=== PATIENT | male | born 1960 | race Caucasian/White ===

== ENCOUNTER 2019-03-28 14:32 | Outpatient (CLI) | payer OTHER, SELFPAY ==
--- NOTE | 2019-04-01 15:44 | SLEEP_ITS ---
Nocturnal Polysomnogram. DATE OF STUDY: 03/28/2019 ORDERING PHYSICIAN: Laure Evans M.D. 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 HISTORY: This patient is a 58-year-old male, who is 70 inches tall, weighing 185 pounds with a body mass index of 26.5. He has a history of obstructive sleep apnea syndrome, has been using a mandibular advancement device since 2009. He received a replacement device in 2015. He sleeps well at night with the exception of some leg pain. He denies snoring. Occasionally, he awakens at night with heartburn. He does not awaken from sleep feeling short of breath. He rarely has trouble sleeping with a cold. He does not gasp for breath at night, is not told by others that he has apnea at night, does not sweat excessively at night or notices heart pounding or beating irregularly at night. He rarely falls asleep during the day, never involuntarily. He does not fall asleep with physical effort. He does not have loss of muscle tone with strong emotion. He does not feel paralyzed on waking or falling asleep. He does not have vivid dreamlike scenes upon awakening or falling asleep and is never afraid to go to sleep. He does not have nightmares. He rarely remembers his dreams. He occasionally has racing thoughts. He rarely feels sad, depressed, or anxious. He rarely has muscular tension. He occasionally notices parts of his body jerking. He rarely kicks at night. He does not have crawly achy feelings in his legs. He occasionally has leg pain at night. He rarely has morning jaw pain. He does not grind his teeth at night. He occasionally is bothered by back and neck pain during the day and at night has back, neck and leg pain. He occasionally wakes up feeling stiff in the morning. He rarely wakes up with sore achy muscles. He occasionally wakes up with pain in the neck and spine. He goes to bed at 10:45 p.m. when he is at home. This varies when he is working and traveling. He wakes up at 06:30 a.m. He typically awakens 2-3 times at night once to urinate and twice for body pain. He is usually awake, 2-5 minutes. During this time, he will use the bathroom, reposition his body and try to work out a cramp in his leg. On weekends, the schedule does change. He does not take naps. A short nap is not refreshing. Most of the time, he feels good when he awakens. He feels better in the afternoon than in the morning. MEDICAL COMORBIDITIES: History of rectal cancer, obstructive sleep apnea, polycystic liver disease, septoplasty and somnoplasty as well as tonsillectomy for sleep apnea and nasal problems. MEDICATIONS: Aspirin 81 mg a day for family history of heart disease. Imodium every other day to decrease colonic motility following rectal surgery. Valacyclovir 500 mg twice a day for 3 days whenever he has a shingles outbreak. HABITS: Never smoked tobacco. Caffeine, 1 soda or tea every other day. No alcohol. No recreational drugs. DESCRIPTION OF THE STUDY: On the [place] Sleepiness Scale, his score is 5. This was conducted as a nocturnal polysomnogram with a mandibular advancement device titration using a [employer] multiple channel system including EOG, EEG, submental EMG, EKG, nasal and oral airflow using thermistors, nasal pressure sensors, chest and abdominal belts, body position data and pulse oximetry. The study was scored using CMS guidelines. The duration of the study was 444.8 minutes. Sleep time was 277.4 minutes. The sleep efficiency was low at 62.4%. Sleep latency was 11.9 minutes. REM latency was 96.5 minutes normal. He had 30 awakenings and spent 35.9% of the study awake after sleep onset, 155.5 minutes. Sleep architecture showed 6.5% stage 1 sleep, 35.1% stage 2 sleep, 15% stage 3 sleep, and 7.5% stage REM. He senior
== END 2019-03-28 14:33 | disposition home or self-care (01) ==
LOC: ANHCSM 14:33
PROVIDERS: PCP Internal Medicine; Visit Provider Internal Medicine Critical Care Medicine
DX: G47.33 Obstructive sleep apnea (adult) (pediatric) (principal); G47.61 Periodic limb movement disorder
CPT/HCPCS: 95810

== ENCOUNTER 2019-10-07 09:42 | Outpatient (CLI) | payer OTHER, SELFPAY ==
--- NOTE | ~2019-10-07 | CT_ITS ---
EXAMINATION: CT soft tissue neck w con DATE: 10/07/2019 10:19 INDICATION: Left neck lymphadenopathy. TECHNIQUE: Computed tomography (CT) of the neck was performed with 75 mL Omnipaque-350 intravenous co ntrast. Automated exposure control and iterative reconstruction technique were employed. The dose-essence gth product was 607.82 mGy-cm. COMPARISON: None FINDINGS: There are no pathologically enlarged lymph nodes. There is plaque in proximal right interna l carotid artery with 0% stenosis relative to normal distal artery lumen diameter. There is a 2.6 x 1 .7 cm subcutaneous lipoma in right posterior thorax. There is mild mucosal thickening in the maxillar y sinuses. There is mild cervical spondylosis. IMPRESSION: 1. No cervical lymphadenopathy. Reviewed, dictated and finalized at location B.
[2019-10-07 10:07] LABS: Estimated Glomerular Filt Rate > 60
== END 2019-10-07 09:43 | disposition home or self-care (01) ==
LOC: ANHIMG 09:45
PROVIDERS: PCP Internal Medicine; Visit Provider Nurse Practitioner
DX: R59.0 Localized enlarged lymph nodes (principal)
CPT/HCPCS: 70491; Q9967

== ENCOUNTER 2020-02-28 11:50 | Emergency (ER) | payer OTHER, SELFPAY ==
[2020-02-28 11:59] VITALS: BP 130/80; PULSE 91; RESP 18; TEMP 36.7; O2SAT 97
--- NOTE | 2020-02-28 12:06 | ED.EYEPROB ---
HPI - Eye Problem General Chief complaint: Eye Problems Stated complaint: L/eye red Time Seen by Provider: 02/28/20 11:55 Source: patient and RN notes reviewed History of Present Illness HPI Narrative: Patient is a 59-year-old male who presents the urgent care with complaints of left eye redness, itchiness and matting. Patient states that he noticed that yesterday morning when he woke up, it being matted shut. Patient states it is seem to worsened over the 24-hours. Patient has not used anything [id number] or placed any eyedrops into the eye. Patient denies of any vision changes, trauma to the eye, known injury to the eye. Patient denies a possibility of anything getting into the eye. Patient does not wear contacts. No other acute complaints. No acute distress noted. Patient aware of the plan of care. Some parts of this dictation were generated by voice recognition software and may contain typographical and/or grammatical inaccuracies. Related Data Home Medications Medication Instructions Recorded Confirmed multivitamin 1 tablet PO DAILY 01/31/19 03/24/19 Allergies Allergy/AdvReac Type Severity Reaction Status Date / Time No Known Allergies Allergy Verified 02/28/20 11:52 Review of Systems Review of Systems: Narrative: CONSTITUTIONAL: Denies fever, chills, or sweats. EYES: Denies visual changes, redness, or discharge. ENT: Reports of left eye redness, itchiness, mild swelling and matting CARDIOVASCULAR: Denies chest pain, palpitations, or edema. RESPIRATORY: Denies cough or dyspnea. GASTROINTESTINAL: Denies abdominal pain, nausea, vomiting, or diarrhea. GENITOURINARY: Denies dysuria or hematuria. SKIN: Denies rash or itching. MUSCULOSKELETAL: Denies back pain, joint pain, or myalgia. NEUROLOGIC: Denies headache, numbness, or weakness. All other systems reviewed are negative, except as documented in HPI. [facility] Past Medical History Medical History (Updated 02/28/20 @ 12:11 by MARTIN Song) Erectile dysfunction Hematuria, gross History of rectal cancer TYLOR (obstructive sleep apnea) Polycystic liver disease Rectal cancer Rectal tumor Surgical History Surgical History (Updated 12/23/18 @ 14:33 by Kymberly Kennedy CMA) H/O ileostomy H/O nasal septoplasty Hx of tonsillectomy Family History Family History (Updated 12/23/18 @ 14:38 by Kymberly Kennedy [facility]) Mother Lung cancer Social History Social History (Updated 12/23/18 @ 15:07 by Kymberly Kennedy [facility]) Smoking status: Never smoker Alcohol intake: never Gender identity (if verbalized by the patient): Male Comments At the time of my signature, I reviewed and agree with the nursing past medical, surgical, social, and family history. There is no relevant family history pertinent to the patient complaint. Exam Narrative: Exam Narrative: GENERAL: This is a well-nourished, well-developed patient, in no apparent distress. HEAD: normocephalic, atraumatic. EYES: PERRL. Right sclera clear/white. Vision is grossly intact. Moderately injected left-sided conjunctivea with moderate erythema, clear tearing, and very mild surrounding edema of the left eye. EARS: External ears normal, auditory canals clear and without drainage, TMs normal without perforation. Hearing grossly intact. NOSE: External nose normal with no obvious nasal discharge, nares without redness, no rhinorrhea. THROAT: Mucous membranes moist, posterior pharynx clear. NECK: Neck supple, slightly tender left-sided possible thyroid nodule SKIN: warm, intact with no suspicious lesions or rash, good texture and turgor. NEURO: awake, alert, and oriented to person, place and time. Course Vital Signs Vital signs: Vital Signs Temperature 98.0 F 02/28/20 11:59 Pulse Rate 91 02/28/20 11:59 Respiratory Rate 18 02/28/20 11:59 Blood Pressure 130/80 02/28/20 11:59 Pulse Oximetry 97 02/28/20 11:59 Temperature 98.0 F 02/28/20 11:59 Pulse Rate 91
== END 2020-02-28 12:18 | disposition home or self-care (01) ==
PROVIDERS: Emergency Provider Nurse Practitioner Family; PCP Internal Medicine
DX: H10.9 Unspecified conjunctivitis (principal); G47.33 Obstructive sleep apnea (adult) (pediatric); Q44.6 Cystic disease of liver; Z85.048 Personal history of other malignant neoplasm of rectum, rectosigmoid junction, and anus
CPT/HCPCS: 99213; G0463

== ENCOUNTER → 2020-03-20 01:16 | Outpatient (CLI) | payer OTHER, SELFPAY ==
[2020-03-20 20:39] LABS: SARS-CoV-2 RNA PCR Negative
== END ==
PROVIDERS: PCP Internal Medicine; Visit Provider Internal Medicine Critical Care Medicine
DX: Z01.812 Encounter for preprocedural laboratory examination (principal); Z20.822 Contact with and (suspected) exposure to COVID-19
CPT/HCPCS: C9803; U0003; U0005

== ENCOUNTER → 2020-03-26 00:25 | Outpatient (CLI) | payer OTHER, SELFPAY ==
[2020-03-26 18:19] LABS: SARS-CoV-2 RNA PCR Negative
== END ==
PROVIDERS: PCP Internal Medicine; Visit Provider Internal Medicine Critical Care Medicine
DX: Z01.812 Encounter for preprocedural laboratory examination (principal); Z20.822 Contact with and (suspected) exposure to COVID-19
CPT/HCPCS: C9803; U0003; U0005

== ENCOUNTER 2020-04-02 08:31 | Outpatient (CLI) | payer OTHER, SELFPAY ==
--- NOTE | 2020-04-05 11:22 | WPDSLEEPSTUD ---
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 He has a prior history of a septoplasty, somnoplasty and a tonsillectomy. He does not awaken from sleep feeling short of breath. He occasionally awakens at night with heartburn, belching or coughing. He does not think that he snores. He is single and he sleeps alone. He does not have other people tell him that he snores at night. He occasionally has trouble sleeping with a cold. He does not wake up gasping for breath at night. He does not have breathing problems at night observed by others. He rarely sweats excessively at night. He rarely notices his heart pounding or beating irregularly at night. He occasionally falls asleep during the day, never involuntarily. He rarely falls asleep while driving. He does not fall asleep while exerting physical effort. He does not have loss of muscle tone was strong emotion. He does not have daytime difficulties due to excessive sleepiness. He does not feel paralyzed on waking or falling asleep. He does not have vivid dreamlike scenes upon awakening or falling asleep. He does not feel afraid to go to sleep. He does not have nightmares. He rarely remembers his dreams. He occasionally has racing thoughts. He occasionally has feelings of sadness depression and anxiety. He occasionally has muscular tension. He occasionally notices parts of his body jerking. He does not kick at night. He occasionally has crawling and aching feelings in his legs. He frequently has leg pain at night. He rarely has morning jaw pain. He does not grind his teeth during sleep. He occasionally is bothered by pain during the day. He frequently is awakened by pain at night, 2-3 times on most nights. He occasionally wakes up feeling stiff in the morning with sore achy muscles. He frequently wakes up with pain in the neck and spine. Most of this pain is associated with spinal nerve irritation. 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 It takes him between 15 minutes and 45 minutes to fall asleep. He typically wakes up 2-3 times at night due to nerve pain. He stays awake for 5-10 minutes. While awake he will change position to relieve the pressure on his spine, and less often he urinates while awake, one time at most. His weekend schedule shows that he goes to bed between 11:00 p.m. and 1:00 a.m.. He wakes in the morning between a.m. and 9:00 a.m.. He sleeps approximately 7-8 hours per night. He does not take naps. A short nap is not refreshing. Most of the time he feels refreshed when he wakes up. Habits: Never smoked tobacco. Caffeine at half of a beverage a day. No alcohol or recreational drugs. [facility] Past Medical History Medical History Erectile dysfunction Hematuria, gross History of rectal cancer TYLOR (obstructive sleep apnea) Polycystic liver disease Rectal cancer Rectal tumor Surgical History Surgical History H/O ileostomy H/O nasal septoplasty Hx of tonsillectomy Family History Family History Mother Lung cancer Social History Social History Smoking status: Never smoker Alcohol intake: never Gender identity
[2020-04-05 16:42] VITALS: BMI 26.5
== END 2020-04-02 08:32 | disposition home or self-care (01) ==
LOC: ANHCSM 08:32
PROVIDERS: PCP Internal Medicine; Visit Provider Nurse Practitioner Family
DX: G47.33 Obstructive sleep apnea (adult) (pediatric) (principal)
CPT/HCPCS: 95810

== ENCOUNTER 2021-05-11 08:55 | Outpatient (CLI) | payer OTHER, SELFPAY ==
--- NOTE | ~2021-05-11 | XR_ITS ---
XR chest 2V DATE: 05/11/2021 09:08 INDICATION: Cough, fever, left-sided crackles for one week TECHNIQUE: PA and lateral chest COMPARISON: None FINDINGS: No pulmonary infiltrate or consolidation, pleural effusion or pulmonary vascular congestion or pneumothorax. Normal heart size. No hilar or mediastinal enlargement. Mild dextro scoliosis of the thoracic spine. IMPRESSION: No active cardiopulmonary disease Reviewed, dictated and finalized at location A.
== END 2021-05-11 08:56 | disposition home or self-care (01) ==
LOC: ANHIMG 09:00
PROVIDERS: PCP Internal Medicine; Visit Provider Clinical Nurse Specialist
DX: R09.89 Other specified symptoms and signs involving the circulatory and respiratory systems (principal); M41.9 Scoliosis, unspecified
CPT/HCPCS: 71046

== ENCOUNTER → 2022-05-30 11:19 | Outpatient (CLI) | payer OTHER, SELFPAY ==
--- NOTE | ~2022-05-30 | XR_ITS ---
Cervical Spine: AP, lateral, open-mouth views Clinical History: Pain Findings: The normal lordotic curve is maintained. The vertebral bodies and posterior elements appea r intact. Small anterior marginal osteophytes are present from C5 to C7. Mild facet arthropathy is pr esent at C4-C5 and C5-C6. The intervertebral disc spaces are well maintained. Pre-vertebral soft tiss ues are unremarkable. Impression: Mild degenerative change, as above. Reviewed, dictated and finalized at location M. Impression: Mild degenerative change, as above.
== END ==
PROVIDERS: PCP Internal Medicine; Visit Provider Clinical Nurse Specialist
DX: M54.12 Radiculopathy, cervical region (principal); M25.569 Pain in unspecified knee
CPT/HCPCS: 72040; 73562

== ENCOUNTER 2023-11-02 14:45 | Outpatient (RCR) | payer MEDICARE, OTHER, SELFPAY ==
--- NOTE | 2023-08-09 10:32 | OTOPEVAL1 ---
Assessment and note entered by Kevin Carmichael, BECKI/Adonay, CHT OT Evaluation Information 08/09/23 Assessment Status Evaluation Diagnosis Trigger finger Onset ~4-5 weeks Subjective Information Patient reports experiencing right middle finger catching about 4-5 weeks ago. Notes it's the worst in the morning and it progressively feels better after he gets moving throughout the day. 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 He is right handed. Reported Pain Level Pain Score 2: Self Report Assessment OT Clinical Summary Patient referred to OT with dx of trigger finger of the right middle finger. He presents with a palpable, sore nodule at the A1 norma. Some catching and pain/discomfort with ROM. Today a figure-8 PIP immobilization splint was fabricated for the patient to wear to rest the flexor tendon. Also issued active and passive ROM HEP. Instructed in the use of ice for reduced inflammation. He verbalizes excellent understanding of all materials. Continued follow up indicated for use of modalities, manual therapy, HEP progression, and therapeutic exercise to facilitate reduced triggering of the right middle finger. Plan of Care Interventions Therapeutic Exercise,Manual Therapy,Therapeutic Activities,Hot Pack/Cold Pack,Ultrasound,Paraffin OT Services Indicated Yes Treatment Frequency and 1x/week for 4 visits Duration These treatments will address the objective and functional deficits as defined above. The patient will be advanced safely and appropriately in order for the patient to progress towards his/her prior level of function. Additional exercises will be introduced and as well as a comprehensive home exercise program upon discharge, if needed, ?to ensure carryover of functional gains achieved in the clinic. This treatment plan has been reviewed and agreement upon by the patient.
--- NOTE | 2023-08-09 10:33 | OPREHPOC ---
Outpatient Therapy Plan of Care This is a Multidisciplinary Plan of Care that may contain components documented by all disciplines (PT, OT, and ST.) OT Problem 1 OT Problem #1 Knowledge Deficit OT Goal 1 Goal 1. Patient to be independent with instructed materials. Target Visit 4 OT Problem 2 OT Problem #2 Pain OT Goal 1 Goal 1. Patient to report reduced pain in the right middle finger to 1/10 at worst . Target Visit 4 OT Problem 3 OT Problem #3 Impaired Flexibility OT Goal 1 Goal 1. Patient to be able to complete tendon glides without sensations of catching in the right middle finger. Target Visit 4 OT Problem 4 OT Problem #4 Impaired Strength OT Goal 1 Goal 1. 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 Target Visit 4
--- NOTE | 2023-08-30 15:14 | OTOPPROG ---
Assessment and note entered by Kevin Carmichael, BECKI/Adonay, CHT OT Progress Update 08/30/23 Diagnosis Trigger finger Onset ~4-5 weeks Subjective Information Patient reports good compliance with HEP - ROM, self massage, splinting, and using heat/ice PRN. He reports therapy has helped keep his symptoms down, he reports without therapy his hand would be much worse off. Overall his pain at rest has reduced to 0/10, which has improved from 2/10. He continues to have intermittent catching with active flexion. Catching is dependent on his activity levels that day. Assessment OT Clinical Summary Patient referred to OT with dx of trigger finger of the right middle finger. Overall his pain is reducing, the nodule is reducing in size, and he is tolerating more resistive exercise without symptoms. He continues to experience catching intermittently, however. Continued follow up indicated for use of modalities, manual therapy, HEP progression, and therapeutic exercise to facilitate reduced triggering of the right middle finger. Plan of Care Interventions Therapeutic Exercise,Manual Therapy,Therapeutic Activities,Hot Pack/Cold Pack,Ultrasound,Paraffin OT Services Indicated Yes Treatment Frequency and 1x/week for 4 visits Duration These treatments will address the objective and functional deficits as defined above. The patient will be advanced safely and appropriately in order for the patient to progress towards his/her prior level of function. Additional exercises will be introduced and as well as a comprehensive home exercise program upon discharge, if needed, ?to ensure carryover of functional gains achieved in the clinic. This treatment plan has been reviewed and agreement upon by the patient.
--- NOTE | 2023-08-30 15:14 | OPREHPOC ---
Outpatient Therapy Plan of Care This is a Multidisciplinary Plan of Care that may contain components documented by all disciplines (PT, OT, and ST.) OT Problem 1 OT Problem #1 Knowledge Deficit OT Goal 1 Goal 1. Patient to be independent with instructed materials. ---OT POC UPDATE 08/30/23--- 1. Met, progress as needed Target Visit 8 OT Problem 2 OT Problem #2 Pain OT Goal 1 Goal 1. Patient to report reduced pain in the right middle finger to 1/10 at worst . ---OT POC UPDATE 08/30/23--- 1. Progressing, but not met, continue Target Visit 8 OT Problem 3 OT Problem #3 Impaired Flexibility OT Goal 1 Goal 1. Patient to be able to complete tendon glides without sensations of catching in the right middle finger. ---OT POC UPDATE 08/30/23--- 1. Progressing, but not met, continue Target Visit 8 OT Problem 4 OT Problem #4 Impaired Strength OT Goal 1 Goal 1. 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 ---OT POC UPDATE 08/30/23--- 1. Began with yang today, continue to progress putty as able Target Visit 8
--- NOTE | 2023-09-27 16:07 | OTOPPROG ---
Assessment and note entered by Kevin Carmichael, BECKI/Adonay, CHT OT Progress Update 09/27/23 Assessment Status Progress Diagnosis Trigger finger Subjective Information Patient reports overall progress in the hand, noticing reduced instances triggering/catching of the finger. He reports compliance with HEP - ROM, self massage, splinting, and using heat/ice PRN. He reports the worst time of day is first thing in the morning, he wakes up with soreness and triggering. He continues to have intermittent catching with active flexion. Catching is dependent on his activity levels that day. Assessment OT Clinical Summary Patient referred to OT with dx of trigger finger of the right middle finger. Overall his pain is reducing, the nodule is reducing in size, and he is tolerating more resistive exercise without symptoms. He continues to experience catching intermittently, however. Continued follow up indicated for use of modalities, manual therapy, HEP progression, and therapeutic exercise to facilitate reduced triggering of the right middle finger. Plan of Care Interventions Therapeutic Exercise,Manual Therapy,Therapeutic Activities,Hot Pack/Cold Pack,Ultrasound,Paraffin OT Services Indicated Yes Treatment Frequency and 2x/week for 6 visits Duration These treatments will address the objective and functional deficits as defined above. The patient will be advanced safely and appropriately in order for the patient to progress towards his/her prior level of function. Additional exercises will be introduced and as well as a comprehensive home exercise program upon discharge, if needed, ?to ensure carryover of functional gains achieved in the clinic. This treatment plan has been reviewed and agreement upon by the patient.
--- NOTE | 2023-09-27 16:07 | OPREHPOC ---
Outpatient Therapy Plan of Care This is a Multidisciplinary Plan of Care that may contain components documented by all disciplines (PT, OT, and ST.) OT Problem 1 OT Problem #1 Knowledge Deficit OT Goal 1 Goal 1. Patient to be independent with instructed materials. ---OT POC UPDATE 08/30/23--- 1. Met, progress as needed ---OT POC UPDATE 09/27/23--- 1. Met Target Visit 13 OT Problem 2 OT Problem #2 Pain OT Goal 1 Goal 1. Patient to report reduced pain in the right middle finger to 1/10 at worst . ---OT POC UPDATE 08/30/23--- 1. Progressing, but not met, continue ---OT POC UPDATE 09/27/23--- 1. Progressing, but not met, continue Target Visit 13 OT Problem 3 OT Problem #3 Impaired Flexibility OT Goal 1 Goal 1. Patient to be able to complete tendon glides without sensations of catching in the right middle finger. ---OT POC UPDATE 08/30/23--- 1. Progressing, but not met, continue ---OT POC UPDATE 09/27/23--- 1. Progressing, but not met, continue Target Visit 13 OT Problem 4 OT Problem #4 Impaired Strength OT Goal 1 Goal 1. 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 ---OT POC UPDATE 08/30/23--- 1. Began with yang today, continue to progress putty as able ---OT POC UPDATE 09/27/23--- 1. Progressing, continue Target Visit 13
--- NOTE | 2023-10-23 13:01 | OTOPPROG ---
Assessment and note entered by BECKI Payne/Adonay, CHT OT Progress Update 10/23/23 Assessment Status Progress Diagnosis Trigger finger Subjective Information Patient reports overall progress in the hand, noticing reduced instances triggering/catching of the finger. He reports when the finger does trigger it's feeling more mild or not as intense . He reports compliance with HEP - ROM, self massage, splinting, and using heat/ice PRN. He also started using Voltaren daily. He reports the worst time of day is first thing in the morning, he wakes up with soreness and stiffness. He continues to have intermittent catching with active flexion, however he does note he can move through more ROM before the catching happens. Assessment OT Clinical Summary Patient referred to OT with dx of trigger finger of the right middle finger. Overall his pain is reducing, the nodule is reducing in size, and he is tolerating more resistive exercise without symptoms. He continues to experience catching intermittently, however. Continued follow up indicated for use of modalities, manual therapy, HEP progression, and therapeutic exercise to facilitate reduced triggering of the right middle finger. Plan of Care Interventions Therapeutic Exercise,Manual Therapy,Therapeutic Activities,Hot Pack/Cold Pack,Ultrasound,Paraffin OT Services Indicated Yes Treatment Frequency and 1x/week for 4 visits Duration These treatments will address the objective and functional deficits as defined above. The patient will be advanced safely and appropriately in order for the patient to progress towards his/her prior level of function. Additional exercises will be introduced and as well as a comprehensive home exercise program upon discharge, if needed, ?to ensure carryover of functional gains achieved in the clinic. This treatment plan has been reviewed and agreement upon by the patient.
--- NOTE | 2023-10-23 13:01 | OPREHPOC ---
Outpatient Therapy Plan of Care This is a Multidisciplinary Plan of Care that may contain components documented by all disciplines (PT, OT, and ST.) OT Problem 1 OT Problem #1 Knowledge Deficit OT Goal 1 Goal / Goal Update 1. Patient to be independent with instructed materials. ---OT POC UPDATE 08/30/23--- 1. Met, progress as needed ---OT POC UPDATE 09/27/23--- 1. Met ---OT POC UPDATE 10/23/23--- 1. Met Target Visit 16 OT Problem 2 OT Problem #2 Pain OT Goal 1 Goal / Goal Update 1. Patient to report reduced pain in the right middle finger to 1/10 at worst . ---OT POC UPDATE 08/30/23--- 1. Progressing, but not met, continue ---OT POC UPDATE 09/27/23--- 1. Progressing, but not met, continue ---OT POC UPDATE 10/23/23--- 1. Progressing, but not met, continue Target Visit 16 OT Problem 3 OT Problem #3 Impaired Flexibility OT Goal 1 Goal / Goal Update 1. Patient to be able to complete tendon glides without sensations of catching in the right middle finger. ---OT POC UPDATE 08/30/23--- 1. Progressing, but not met, continue ---OT POC UPDATE 09/27/23--- 1. Progressing, but not met, continue ---OT POC UPDATE 10/23/23--- 1. Progressing, but not met, continue Target Visit 16 OT Problem 4 OT Problem #4 Impaired Strength OT Goal 1 Goal / Goal Update 1. Patient to be able to complete light pocket assembler/pinch strengthening with the right hand with at least yellow theraputty x5 minutes without symptoms of trigger finger. ---OT POC UPDATE 08/30/23--- 1. Began with yang today, continue to progress putty as able ---OT POC UPDATE 09/27/23--- 1. Progressing, continue ---OT POC UPDATE 10/23/23--- 1. Met Target Visit 16
--- NOTE | 2023-10-29 12:40 | PCOTNOTE ---
Patient did not show up for scheduled appointment this date.
--- NOTE | 2023-11-06 15:19 | PCOTNOTE ---
This treatment is being continued on visit number [id number]. Please see documentation on both accounts to view progress. Completed interventions, outcomes, and problems have been marked as Inactive to facilitate the copying of the Care plan routine for recurring accounts.
== END 2023-11-06 13:54 | disposition still patient (30) ==
LOC: ANHGOSHOT 14:45
PROVIDERS: PCP Internal Medicine; Visit Provider Clinical Nurse Specialist
DX: M65.30 Trigger finger, unspecified finger (principal)
CPT/HCPCS: 97018; 97035; 97110; 97140; 97165; 97763; L3933

== ENCOUNTER 2023-12-20 15:00 | Outpatient (RCR) | payer MEDICARE, OTHER, SELFPAY ==
--- NOTE | 2023-11-06 15:23 | PCOTNOTE ---
The treatment documented on this account is a continuation of the treatment documented on visit number [id number]. Please see documentation on both accounts to view progress. The Plan of Care has been transitioned and updated within the new V#. I have addressed and agree with the discipline specific Problems, Interventions, and Goals for the current certification period. Completed interventions, outcomes, and problems have been marked as Inactive to facilitate the copying of the Care plan routine for recurring accounts.
--- NOTE | 2023-11-20 16:02 | OTOPPROG ---
Assessment and note entered by Kevin Carmichael, BECKI/Adonay, CHT OT Progress Report 11/20/23 Assessment Status Progress Diagnosis Trigger finger Subjective Information Patient reports continued progress in the hand, noticing reduced instances triggering/catching of the finger. He reports when the finger does trigger it's feeling more mild or not as intense . He reports compliance with HEP - ROM, self massage, splinting, and using heat/ice. He reports the worst time of day is first thing in the morning, he wakes up with soreness and stiffness. He continues to have intermittent catching with active flexion, however he does note he can move through more ROM before the catching happens. Assessment OT Clinical Summary Patient referred to OT with dx of trigger finger of the right middle finger. This past month his pain has remained unchanged. His ROM is slightly better, able to make more of a flat fist before triggering occurs. Triggering continues to be evident with full finger flexion especially with any force. We have trialed at PIP immobilization splint and a full finger immobilizer for comfort. He has been experiencing more stiffness in the finger. Today a MCP blocking splint was fabricated to allow for IP motion during the day/with use. At this time he is currently independent with all materials and independent with splinting. Discussed the importance of rest - he tends to use his hands a lot on tools. Plan to have the patient continue this HEP for a month and return for re-assessment. Continued follow up indicated for HEP progression, splinting, and therapeutic exercise to facilitate reduced triggering of the right middle finger. Plan of Care Interventions Therapeutic Exercise,Ultrasound,Paraffin,Manual Therapy,Therapeutic Activities,Hot Pack/Cold Pack OT Services Indicated Yes Treatment Frequency and 0-1x/week for 4 weeks Duration These treatments will address the objective and functional deficits as defined above. The patient will be advanced safely and appropriately in order for the patient to progress towards his/her prior level of function. Additional exercises will be introduced and as well as a comprehensive home exercise program upon discharge, if needed, ?to ensure carryover of functional gains achieved in the clinic. This treatment plan has been reviewed and agreement upon by the patient.
--- NOTE | 2023-11-20 16:02 | OPREHPOC ---
Outpatient Therapy Plan of Care This is a Multidisciplinary Plan of Care that may contain components documented by all disciplines (PT, OT, and ST.) OT Problem 1 OT Problem #1 Knowledge Deficit OT Goal 1 Goal / Goal Update 1. Patient to be independent with instructed materials. ---OT POC UPDATE 08/30/23--- 1. Met, progress as needed ---OT POC UPDATE 09/27/23--- 1. Met ---OT POC UPDATE 10/23/23--- 1. Met ---OT POC UPDATE 11/20/23--- 1. Met Target Visit 20 OT Problem 2 OT Problem #2 Pain OT Goal 1 Goal / Goal Update 1. Patient to report reduced pain in the right middle finger to 1/10 at worst . ---OT POC UPDATE 08/30/23--- 1. Progressing, but not met, continue ---OT POC UPDATE 09/27/23--- 1. Progressing, but not met, continue ---OT POC UPDATE 10/23/23--- 1. Progressing, but not met, continue ---OT POC UPDATE 11/20/23--- 1. Progressing, but not met, continue Target Visit 20 OT Problem 3 OT Problem #3 Impaired Flexibility OT Goal 1 Goal / Goal Update 1. Patient to be able to complete tendon glides without sensations of catching in the right middle finger. ---OT POC UPDATE 08/30/23--- 1. Progressing, but not met, continue ---OT POC UPDATE 09/27/23--- 1. Progressing, but not met, continue ---OT POC UPDATE 10/23/23--- 1. Progressing, but not met, continue ---OT POC UPDATE 11/20/23--- 1. Progressing, but not met, continue Target Visit 16 OT Problem 4 OT Problem #4 Impaired Strength OT Goal 1 Goal / Goal Update 1. Patient to be able to complete light senior design engineering specialist/pinch strengthening with the right hand with at least yellow theraputty x5 minutes without symptoms of trigger finger. ---OT POC UPDATE 08/30/23--- 1. Began with yang today, continue to progress putty as able ---OT POC UPDATE 09/27/23--- 1. Progressing, continue ---OT POC UPDATE 10/23/23--- 1. Met Target Visit 16
--- NOTE | 2023-12-20 15:50 | OTOPDC ---
Assessment and note entered by Kevin Carmichael, BECKI/Adonay, CHT OT DISCHARGE SUMMARY 12/20/23 Diagnosis Trigger finger Subjective Information Patient has taken a month off of formal therapy visits to work on his own. He reports some progress, noting reduced instances of triggering and less severe triggering. He has been wearing a splint at night and about 30% of the day and especially if he's going to be using his hands with tools or doing something strenuous, for example. He reports the worst time of day is first thing in the morning, he wakes up with soreness and stiffness. He continues to have intermittent catching with active flexion, however he does note he can move through more ROM before the catching happens. He reports he has a good routine down with heat, stretching, and ROM that helps loosen up the finger. He has 2 different splints he alternates between. Reported Pain Level Pain Score 1: Self Report Assessment OT Clinical Summary Patient referred to OT with dx of trigger finger. He has attended 17 visits focused on reducing inflammation of the flexor tendon of the right middle finger. Therapy has utilized splinting, modalities, manual therapy, stretching, and gentle strengthening. He has been very compliant with all materials. He has made progress with reduced pain and reduced instances of triggering over the past 4 months. He unfortunately continues to have slight catching when isolating the flexor digitorum superficialis tendon. He demonstrates excellent understanding of all materials. Reviewed HEP. Patient has reached his maximum therapy benefit at this time. Discussed with patient the benefits of a cortisone injection if he feels like his progress plateaus. He is hesitant to go this route at this time, but knows this is an option in the future. D/C OT with HEP. Plan of Care OT Services Indicated No
== END 2023-12-21 08:36 | disposition home or self-care (01) ==
LOC: ANHGOSHOT 15:00
PROVIDERS: PCP Internal Medicine; Visit Provider Clinical Nurse Specialist
DX: M65.30 Trigger finger, unspecified finger (principal)
CPT/HCPCS: 97018; 97035; 97110; L3913

== ENCOUNTER 2024-06-29 10:27 | Emergency (ER) | payer MEDICARE, OTHER, SELFPAY ==
--- NOTE | ~2024-06-29 | XR_ITS ---
Right foot Technique: AP, oblique, and lateral views were obtained. Clinical History: Injury Findings: There is acute, oblique, mildly displaced fracture the fifth metatarsal shaft. No other fra cture or dislocation seen.. Joint spaces are preserved without erosive or degenerative change. Soft t issues are unremarkable. Impression: Acute fracture the fifth metatarsal shaft, as detailed above. Reviewed, dictated and finalized at location . Impression: Acute fracture the fifth metatarsal shaft, as detailed above.
--- NOTE | 2024-06-29 10:40 | ED.LOWEXIN ---
HPI - Extremity Injury (Lower) General Chief Complaint: Extremity Injury, Lower Stated Complaint: INJURED R FOOT/ANKLE Time Seen by Provider: 06/29/24 10:33 Source: patient Mode of arrival: ambulatory Limitations: no limitations History of Present Illness HPI Narrative: 63 y/o male presented for 2 complaints Endorses right foot pain after injury yesterday while cleaning up debris. Says he stepped out of his vehicle, and landed wrong on the curb causing him to land on the outer aspect of the right. Pt has continued to walk on the foot but pain is worse to the outer foot. Taking Naproxen. Denies numbness, tingling, weakness, or deformity. Also reports sore throat for a few days. Denies n/v/d/f/c. Related Data Home Medications Medication Instructions Recorded Confirmed Last Taken Type multivitamin 1 tablet PO DAILY 01/31/19 06/29/24 Unknown History aspirin 81 mg tablet,delayed 81 mg PO DAILY 07/08/20 06/29/24 Unknown History release (Adult Low Dose Aspirin) loperamide 2 mg tablet (Imodium 2 mg PO DAILY 10/13/22 06/29/24 Unknown History A-D) valacyclovir 500 mg tablet 500 mg PO DAILY PRN 10/13/22 07/18/23 Unknown History Allergies Allergy/AdvReac Type Severity Reaction Status Date / Time No Known Allergies Allergy Verified 06/29/24 10:47 Review of Systems Review of Systems: per HPI All systems reviewed & are unremarkable except as noted in HPI and below PMFSH Past Medical History Medical History COVID-19 Erectile dysfunction Hematuria, gross History of rectal cancer Lymphadenopathy of left cervical region TYLOR (obstructive sleep apnea) Rectal cancer Rectal tumor Surgical History Surgical History H/O ileostomy H/O nasal septoplasty Hx of tonsillectomy Family History Family History Mother Lung cancer Social History Social History Smoking status: Never smoker Alcohol intake: never Lack of Transportation: No Lack of Food: Never True Current Housing: I Have Housing Concerned About Future Housing: No Difficulty Paying Gas/Electric Bills: No Difficulty Paying for Meds: No Currently Unemployed: No Education: Bachelor's Degree Difficulty w/ Childcare or Family Care: No Gender identity (if verbalized by the patient): Male Comments At time of signature, I have reviewed and agree with nursing past medical, surgical, social and family history unless otherwise noted. Please see nursing chart for further information. There is no relevant family history pertinent to the presenting complaint Exam Narrative: GENERAL: Well-appearing, well-nourished, and in no acute distress. CHEST: Speaks in full sentences. No respiratory distress. HEART: Regular rate and rhythm. Normal and equal peripheral pulses. EXTREMITIES: Right foot has normal strength and sensation, decreased range of motion with flexion/extension of toes due to pain with movement. Mild swelling to dorsal and lateral foot, ecchymosis over the right lateral foot and toes 2-4. point tenderness to mid 5th metatarsal. No open wounds, or obvious deformity; alignment normal, pulse palpable and equal bilaterally, skin warm, dry, pink. Capillary refill less than 3 seconds. SKIN: Warm, dry, no rash. NEURO: Alert and oriented x3. PSYCH: Normal mood and affect Course Course Emergency Course: Patient is aware of diagnosis, understands and agrees to treatment plan. Anticipatory guidance given. Patient agrees to follow-up as directed and is aware of reasons to seek care at the emergency department. Portions of this record may have been created with voice recognition software Level of Care: Express Care Visit Vital Signs Vital signs: Vital Signs Temperature 97.1 F L 06/29/24 10:41 Pulse Rate 79 06/29/24 10:41 Respiratory Rate 16 06/29/24 10:41 Blood Pressure 133/82 06/29/24 10:41 Pulse Oximetry 100 06/29/24 10:41 Temperature 97.1 F L 06/29/24 10:41 Pulse Rate 79 06/29/24 10:41 Respiratory Rate 16 06/29/24 10:41 Blood Pressure 133/82 06/29/24 10:41 Pulse Oximetry 100 06/29/24 10:41 Reviewed MDM - Extremity Injury (Lower) MDM Narrative Medical decision making narrative: Discussed physical exam findings and xray. Neg strep. Pt declined OCL and crutches today, he is agreeable to purchase walking boot from [facility] tomorrow, and he will f/u with his established ortho. Advised supportive measures and signs/symptoms to go to the ER. Pt is appropriate for outpt treatment and f/u. Differential Diagnosis Differential diagnosis: Likely other (Plantar fasciitis, heel spur, foot strain/sprain, metatarsal fracture, metatarsalgia, frederick's neuroma) Lab Data Labs: Lab Results 06/29/24 Range/Units 10:51 POC Grp A Strep Screen Negative (Negative) Imaging Data Radiologist's impression: Patient: Mg Serrano : 1960 MR#: [id number] Age: 63 Acct:[id number] Loc: [facility] ADM Date: 06/29/24Attending Dr: Ordering Physician: Karissa Lerma APRN Date of Service: 06/29/24 Procedure(s): XR foot RT min 3V Accession Number(s): [id number] cc: Karissa Lerma APRN; Catracho Pressley DO~ Right foot Technique: AP, oblique, and lateral views were obtained. Clinical History: Injury Findings: There is acute, oblique, mildly displaced fracture the fifth metatarsal shaft. No other fracture or dislocation seen.. Joint spaces are preserved without erosive or degenerative change. Soft tissues are unremarkable. Impression: Acute fracture the fifth metatarsal shaft, as detailed above. Discharge Plan Discharge Clinical Impression: Fracture of fifth metatarsal bone of right foot Qualifiers: Encounter type: initial encounter Fracture type: closed Fracture alignment: displaced Qualified Code(s): S92.351A - Displaced fracture of fifth metatarsal bone, right foot, initial encounter for closed fracture Pharyngitis Qualifiers: Pharyngitis/tonsillitis etiology: unspecified etiology Qualified Code(s): J02.9 - Acute pharyngitis, unspecified Patient Disposition: Home Condition: Stable Instructions: Antibiotic Form, Foot Fracture in Adults (ED) Additional Instructions: Throat: Rapid strep swab was negative today You will be notified in a few days if the culture comes back positive for strep, and appropriate antibiotics will be called in at that time. if symptoms are due to a viral illness, it is not treated with antibiotics. Viral symptoms can be present for up to 10-14 days. Recommendations: Flonase spray and Zyrtec for sinus congestion Tylenol every 8 hours as needed for pain/fever Soft foods, cool liquids, warm tea. Gargle with warm saltwater twice a day. Chloraseptic spray and throat lozenges. Rest and stay hydrated. Right foot fracture: Rest, avoid bearing weight on the foot. ice and elevate the right foot. Motrin 800mg every 8 hours, as needed, for pain (take with food). Tylenol 1000mg every 8 hours. Keep the walking hills clean, dry and in place. You will purchase a walking boot from [facility] Sunday Go to the ER immediately for increased pain, tingling/numbness, swelling, redness, and fever Follow up with Orthopedic Surgery in 2 days for further evaluation - please call Sunday for an appointment. Patient Language: Amharic Prescriptions: No Action multivitamin Tablet 1 tablet PO DAILY aspirin [Adult Low Dose Aspirin] 81 mg tablet,delayed release (DR/EC) 81 mg PO DAILY loperamide [Imodium A-D] 2 mg tablet 2 mg PO DAILY valacyclovir 500 mg tablet 500 mg PO DAILY PRN Follow-up/Referrals: Catracho Pressley DO [Primary Care Provider] - Time of Disposition: 11:08
[2024-06-29 10:41] VITALS: BP 133/82; PULSE 79; RESP 16; TEMP 36.2; O2SAT 100
[2024-06-29 10:53] LABS: EDSTREPNEGPOS1 Negative (Negative)
== END 2024-06-29 11:14 | disposition home or self-care (01) ==
PROVIDERS: Emergency Provider Nurse Practitioner Family; PCP Internal Medicine
DX: S92.351A Displaced fracture of fifth metatarsal bone, right foot, initial encounter for closed fracture (principal); X50.9XXA Other and unspecified overexertion or strenuous movements or postures, initial encounter; J02.9 Acute pharyngitis, unspecified; Z86.16 Personal history of COVID-19; Z85.048 Personal history of other malignant neoplasm of rectum, rectosigmoid junction, and anus
CPT/HCPCS: 73630; 87081; 87880; 99213; G0463

== ENCOUNTER 2024-08-29 13:50 | Emergency (ER) | payer MEDICARE, OTHER, SELFPAY ==
--- NOTE | 2024-08-29 13:54 | ED.URI ---
HPI - URI/Sore Throat General Chief Complaint: Upper Respiratory Infection Stated Complaint: Sinus, soar throat Time Seen by Provider: 08/29/24 13:53 Source: patient Mode of arrival: ambulatory Limitations: no limitations History of Present Illness HPI Narrative: Salas is a 64-year-old male patient presenting to the clinic today with complaints of sinus congestion, green nasal drainage, sore throat, ear pain, cough, and swollen lymph nodes for over 1 week. States he has had a low-grade fever. His son is in the clinic with similar symptoms. Denies any shortness of breath or chest pain currently. Has taken Afrin and Tylenol for his symptoms with mild relief MD elicited complaint: sore throat and nasal congestion Related Data Home Medications ?Medication ?Instructions ?Recorded ?Confirmed ?Last Taken ?Type multivitamin 1 tablet PO DAILY 01/31/19 06/29/24 Unknown History aspirin 81 mg tablet,delayed 81 mg PO DAILY 07/08/20 06/29/24 Unknown History release (Adult Low Dose Aspirin) loperamide 2 mg tablet (Imodium 2 mg PO DAILY 10/13/22 06/29/24 Unknown History A-D) valacyclovir 500 mg tablet 500 mg PO DAILY PRN 10/13/22 07/18/23 Unknown History Allergies Allergy/AdvReac Type Severity Reaction Status Date / Time No Known Allergies Allergy Verified 08/29/24 14:16 Review of Systems Review of Systems: Pertinent positives per HPI. Patient denies any fever, chills, rash, headache, visual changes, dizziness, shortness of breath, chest pain, palpitations, nausea, vomiting, diarrhea, constipation, abdominal pain, or any urinary issues. [facility] Past Medical History Medical History COVID-19 Erectile dysfunction Hematuria, gross History of rectal cancer Lymphadenopathy of left cervical region TYLOR (obstructive sleep apnea) Rectal cancer Rectal tumor Surgical History Surgical History Hx of tonsillectomy H/O ileostomy H/O nasal septoplasty Family History Family History Mother Lung cancer Social History Social History (Reviewed 08/29/24 @ 14:50 by HOA Hurtado Smoking status: Never smoker Alcohol intake: never Lack of Transportation: No Lack of Food: Never True Current Housing: I Have Housing Concerned About Future Housing: No Difficulty Paying Gas/Electric Bills: No Difficulty Paying for Meds: No Currently Unemployed: No Education: Bachelor's Degree Difficulty w/ Childcare or Family Care: No Gender identity (if verbalized by the patient): Male Comments At the time of my signature, I reviewed and agree with the nursing past medical, surgical, social, and family history. There is no relevant family history pertinent to the patient complaint. Exam Narrative: General: Well-developed, well nourished, in no apparent distress Head: Normocephalic, atraumatic Eyes: Pupils equally round and reactive to light bilaterally, EOM intact, sclera and conjunctive clear, no discharge, lids normal Ears: TMs intact, bulging, and congested, ear canals clear, no drainage, grossly hearing normal. Nose: Nares patent, green nasal discharge, severe inflammation, maxillary and frontal sinus tenderness. Mouth: Oral pharynx without lesions or masses, good dentition, MMM. Tonsils surgically absent, postnasal drip Neck: Supple, trachea midline, no enlargement of anterior or posterior cervical nodes, no thyroid masses or goiter palpable. Cardio: Regular rate and rhythm, s1 and s2 normal, no murmur appreciated. Resp: Clear to auscultation bilaterally, no rhonchi, rales, wheezing or rubs Course Course Emergency Course: Portions of this record may have been created with voice recognition software. Level of Care: Express Care Visit Vital Signs Vital signs: Vital Signs Temperature 36.7 C 08/29/24 14:18 Pulse Rate 86 08/29/24 14:18 Respiratory Rate 16 08/29/24 14:18 Blood Pressure 107/79 08/29/24 14:18 Pulse Oximetry 99 08/29/24 14:18 Oxygen Delivery Room Air 08/29/24 14:18 Temperature 36.7 C 08/29/24 14:18 Pulse Rate 86 08/29/24 14:18 Respiratory Rate 16 08/29/24 14:18 Blood Pressure 107/79 08/29/24 14:18 Pulse Oximetry 99 08/29/24 14:18 Oxygen Delivery Room Air 08/29/24 14:18 Vital signs reviewed MDM - URI/Sore Throat MDM Narrative Medical decision making narrative: At the time of visit patient is resting comfortably on the exam table. Patient appears to be nontoxic. Vital signs are stable. Reporting swollen lymph nodes, green nasal drainage, sinus pressure/congestion, headache, low-grade fever, and ear pain. Symptoms have been going on for over 1 week. His son has similar symptoms that been going on for 3 weeks. Denies any shortness of breath or chest pain. Is able speak in full sentences. Has pain and pressure over the maxillary and frontal sinuses. Has moderate to severe swelling to the turbinates. No palpable lymph node swelling. Strep test was ordered per patient request. Labs: Strep testing was negative in the clinic today. We will send strep for culture. Plan: I suspect patient has bacterial rhinosinusitis. Prescription for Augmentin and prednisone was sent to the pharmacy. Supportive measures were discussed with the patient and they voiced understanding discharge instructions and agrees to treatment plan. Return precautions reviewed Differential Diagnosis Differential diagnosis: Likely upper respiratory infection, otitis media, sinusitis, viral infection, bronchitis, influenza, pharyngitis and other (COVID) Lab Data Labs: Lab Results 08/29/24 Range/Units 14:23 POC Grp A Strep Screen Negative (Negative) Discharge Plan Discharge Clinical Impression: Acute bacterial rhinosinusitis Patient Disposition: Home Condition: Stable Instructions: Antibiotic Form, Rhinosinusitis (ED) Additional Instructions: Take prescription medications only as prescribed-prednisone and Augmentin Increase fluids and stay well hydrated Tylenol/motrin for pain/fever Flonase and OTC antihistamines as directed Vicks vapor rub to open sinuses Sinus rinses for congestion Cepacol spray, cough drops, throat lozenges, warm tea with honey/lemon, gargle salt water to soothe throat BRAT diet for diarrhea Clear liquids x 24 hours then advance as tolerated for nausea/vomiting Go to the ED if you develop a worsening in your condition- high fever not controlled by Tylenol or Motrin, dehydration, weakness, lethargy, shortness of breath, or chest pain. Follow up with your PCP in 3-5 days if symptoms persist. Patient Language: Swedish Prescriptions: New amoxicillin-pot clavulanate 875-125 mg tablet 1 tablet PO Q12H 10 Days Qty: 20 0RF prednisone 20 mg tablet 40 mg PO DAILY 5 Days Qty: 10 0RF No Action multivitamin Tablet 1 tablet PO DAILY aspirin [Adult Low Dose Aspirin] 81 mg tablet,delayed release (DR/EC) 81 mg PO DAILY loperamide [Imodium A-D] 2 mg tablet 2 mg PO DAILY valacyclovir 500 mg tablet 500 mg PO DAILY PRN Follow-up/Referrals: Arline Garrison [facility] [Primary Care Provider] - Time of Disposition: 14:45 Quality NIHSS Nursing Documentation ED NIHSS nursing documentation: reviewed/agree
[2024-08-29 14:18] VITALS: BP 107/79; PULSE 86; RESP 16; TEMP 36.7; O2SAT 99
[2024-08-29 14:24] LABS: EDSTREPNEGPOS1 Negative (Negative)
== END 2024-08-29 14:49 | disposition home or self-care (01) ==
PROVIDERS: Emergency Provider Nurse Practitioner Family; PCP Clinical Nurse Specialist
DX: J01.90 Acute sinusitis, unspecified (principal); Z86.16 Personal history of COVID-19; Z85.048 Personal history of other malignant neoplasm of rectum, rectosigmoid junction, and anus; Z79.82 Long term (current) use of aspirin
CPT/HCPCS: 87081; 87880; 99213; G0463

== ENCOUNTER 2025-01-07 12:54 | Outpatient (CLI) | payer MEDICARE, OTHER, SELFPAY ==
--- NOTE | ~2025-01-07 | XR_ITS ---
XR thoracic spine 2V Indication: Pain in thoracic spine, no inj, no surg, pain x years Comparison: None Findings: The vertebral heights are intact. No fracture or subluxation. The disc heights are intact. Soft tissues unremarkable Impression: No acute abnormality. Reviewed, dictated and finalized at location P. RUMENT SPECIALIST Impression: No acute abnormality.
--- NOTE | ~2025-01-07 | XR_ITS ---
XR lumbar spine 2-3V 01/07/2025 13:26 Indication: Radiculopathy Procedure: 3 views lumbar spine Comparison: No prior studies for comparison. Findings: There is dextroscoliosis of the lumbar spine. There is disc narrowing at L3-4 and L5-S1. There is grade 1 degenerative spondylolisthesis at L5-S1 secondary to facet hypertrophy. There is dextroscoliosis. There is moderate facet degenerative change at L4-5 and L5-S1. No acute fracture or traumatic malalignment. There is a gallstone in the right upper abdomen. Impression: 1: Moderate lumbar spondylosis with dextroscoliosis. Reviewed, dictated and finalized at location O. NS PICKER Impression: 1: Moderate lumbar spondylosis with dextroscoliosis.
--- NOTE | ~2025-01-07 | XR_ITS ---
XR_[id number]_CR Indication: Radiculopathy, cervical region, pain x years Comparison: None Findings: The vertebral heights are intact. No fracture or subluxation. Moderate loss of disc at C5-6 and C6-7 Soft tissues unremarkable Impression: No acute abnormality. Reviewed, dictated and finalized at location P. NDER INSPECTOR AND TESTER Impression: No acute abnormality.
== END 2025-01-07 12:55 | disposition home or self-care (01) ==
LOC: GOSHIMG 12:54
PROVIDERS: PCP Clinical Nurse Specialist; Visit Provider Nurse Practitioner
DX: M47.26 Other spondylosis with radiculopathy, lumbar region (principal)
CPT/HCPCS: 72040; 72070; 72100